=== PATIENT | male | born 1990 | race Caucasian/White ===

== ENCOUNTER 2017-05-11 10:38 | Emergency (ER) | payer MEDICAID ==
[~2017-05-11] VITALS: Ht 175.3 cm; Wt 121.1 kg
[2017-05-11 10:49] VITALS: Ht 175.3 cm; Wt 121.1 kg
[2017-05-11 11:49] VITALS: BP 130/75
== END 2017-05-11 11:49 | disposition home or self-care (01) ==
LOC: ED 10:38
DX: S01.81XA Laceration without foreign body of other part of head, initial encounter (principal); S09.90XA Unspecified injury of head, initial encounter; Y04.8XXA Assault by other bodily force, initial encounter; Y93.89 Activity, other specified; Y92.89 Other specified places as the place of occurrence of the external cause; Y99.8 Other external cause status